=== PATIENT | female | born 1995 | race Caucasian/White ===

== ENCOUNTER 2019-05-15 12:48 | Outpatient (CLI) | payer OTHER | END 2019-05-15 13:11 | disposition home or self-care (01) | LOC: FBPOP 12:48 | PROVIDERS: ATTEND Obstetrics & Gynecology | DX: O24.419 Gestational diabetes mellitus in pregnancy, unspecified control (principal); Z3A.00 Weeks of gestation of pregnancy not specified | CPT/HCPCS: 59025 ==

== ENCOUNTER 2019-06-23 00:46 | Inpatient (IN) | payer OTHER ==
[2019-06-23 01:33] LABS: Appearance,Urine Cloudy (Clear); Bacteria,Urine Occasional /hpf; Bilirubin,Urine Negative (Negative); Blood,Urine Moderate (Negative); Color,Urine Yellow; Glucose,Urine (UA) Negative (Negative); Ketones,Urine Trace (Negative); Leukocyte Esterase,Urine Negative (Negative); Mucus,Urine Occasional /hpf; Nitrite,Urine Negative (Negative); Protein,Urine Negative (Negative); RBC,Urine 1 /hpf (0-5); Specific Gravity,Urine 1.015 (1.001-1.035); Squamous Epithelial Cell,Urine 2 /hpf (0-4); Urobilinogen,Urine <2.0 mg/dL (<2.0); WBC,Urine 2 /hpf (0-5)
[2019-06-23 01:50] LABS: Protein/Creatinine Ratio,Urine 0.106
[2019-06-23 02:07] LABS: Uric Acid 5.7 mg/dL (3.7-7.4)
[2019-06-23 02:18] LABS: Basophils # (A) 0.1 k/uL (0-0.2); Basophils % (A) 0 %; Eosinophils # (A) 0.1 k/uL (0-0.7); Eosinophils % (A) 1 %; HCT 37.9 % (34.0-46.0); HGB 13.1 gm/dL (11.4-16.0); Lymphocytes # (A) 2.2 k/uL (1.0-4.8); Lymphocytes % (A) 20 %; MCH 28.8 pg (25.0-35.0); MCHC 34.5 g/dL (31.0-37.0); MCV 83.6 fL (80.0-100.0); Mean Platelet Volume 8.1; Monocytes # (A) 0.6 k/uL (0-1.0); Monocytes % (A) 5 %; Neutrophils # (A) 8.1 k/uL (1.3-7.7); Neutrophils % (A) 72 %; Platelet Count 310 k/uL (150-450); RBC 4.53 m/uL (3.80-5.40); RDW 12.9 % (11.5-15.5); WBC 11.3 k/uL (3.8-10.6)
[2019-06-23] MEDS ORDERED: CARBOPROST TROMETHAMINE 250 MCG/ML 1 ML AMP IM PRN (02:34)
[2019-06-23] MEDS ORDERED: METHYLERGONOVINE 0.2 MG/ML 1 ML AMP IM PRN (02:34)
[2019-06-23] MEDS ORDERED: LIDOCAINE 0.5% (PF) 5 MG/ML (50 ML SDV) SQ PRN (02:34)
[2019-06-23] MEDS ORDERED: OXYTOCIN 10 UNIT/ML 1 ML VIAL IM PRN (02:34)
[2019-06-23] MEDS ORDERED: TERBUTALINE 1 MG/ML VIAL SQ PRN (02:34)
[2019-06-23] MEDS: LACTATED RINGERS 1,000 ML IV SCH ×2 (02:57→08:55)
[2019-06-23 03:41] LABS: Glucose,Whole Blood 93 mg/dL (75-99)
[2019-06-23] MEDS ORDERED: BUTORPHANOL 1 MG/ML 1 ML VIAL IV PRN (04:54)
[2019-06-23] MEDS ORDERED: OXYTOCIN 30 UNITS/500 ML NS 30 UNIT in SALINE 1 500ML.BAG IV SCH (06:45)
--- NOTE | 2019-06-23 07:55 | P.HPOB ---
History of Present Illness H&P Date: 06/23/19 Chief Complaint: Strong regular uterine contractions This is a 23-year-old white female 1 para 0 EDC for 120 at 38 6/7 weeks gestation. Patient presented last night with strong regular uterine contractions, with cervical change noted in the triage area. Fetus is been active throughout the . She denied vaginal bleeding or fluid leakage. Obstetric history is significant for blood type A positive, group B strep cultures negative. Rubella status immune. Urine culture, gonorrhea and chlamydia cultures, Pap smear, hepatitis B surface antigen, HIV testing all negative. One-hour Glucola 154, 3 hour testing consistent with gestational diabetes. Past medical history is negative. Past surgical history is negative. Family history consistent with heart disease, hypertension, Parkinson's disease, lupus, cervical cancer, endometriosis. Social history, patient is , denies alcohol, tobacco, or drug use. Patient is currently unemployed. ALLERGIES none known. On exam this is a pleasant white female, 5 foot 7 inches, 215 pounds, initial bl ood pressure 142/100, pulse 104, repeat blood pressures normalized. The general physical exam is within normal limits. Extremities reveal trace edema. Chest is clear in all ken. Cervix is 3-4 cm dilated, 80-90% effaced, -2 station, vertex. Artificial amniorrhexis reveals slightly blood-tinged fluid. heart tones are consistent with reactive NST. Impression 38-6/7 weeks intrauterine , early active labor. Gestational diabetes. Plan: Oxytocin augmentation per hospital protocol. Continue close maternal and surveillance. Anticipate normal spontaneous vaginal delivery. Patient is requesting epidural and anesthesia team is present and aware. Review of Systems Constitutional: Reports as per HPI Past Medical History Additional Past Medical History / Comment(s): Gestational diabetes History of Any Multi-Drug Resistant Organisms: None Reported Past Surgical History: No Surgical Hx Reported Past Anesthesia/Blood Transfusion Reactions: No Reported Reaction Past Psychological History: No Psychological Hx Reported Smoking Status: Never smoker Past Alcohol Use History: None Reported Past Drug Use History: None Reported - Past Family History Mother Family Medical History: Cancer Additional Family Medical History / Comment(s): cervical cancer Medications and Allergies Home Medications Medication Instructions Recorded Confirmed Type 78/Iron/Folate 1/Dha 1 each PO DAILY 05/15/19 06/23/19 History [Prenate Dha Softgel] Allergies Allergy/AdvReac Type Severity Reaction Status Date / Time No Known Allergies Allergy Verified 06/23/19 07:35 Exam Vital Signs Temp Pulse Resp BP Pulse Ox 06/23/19 02:58 98.3 F 104 H 18 142/100 97 06/23/19 02:30 93 18 143/95 06/23/19 00:55 98.3 F 108 H 18 142/100 Intake and Output 06/22/19 06/23/19 06/23/19 22:59 06:59 14:59 Intake Total 500 Balance 500 Intake: IV 500 Other: # Voids 1 Weight 97.522 kg See dictation under HPI please Results Result Diagrams: 06/23/19 01:45 Abnormal Lab Results - Last 24 Hours (Table) 06/23/19 06/23/19 Range/Units 01:10 01:45 WBC 11.3 H (3.8-10.6) k/uL Neutrophils # 8.1 H (1.3-7.7) k/uL Urine Appearance Cloudy H (Clear) Urine Ketones Trace H (Negative) Urine Blood Moderate H (Negative) Urine Bacteria Occasional H (None) /hpf Urine Mucus Occasional H (None) /hpf Assessment and Plan Assessment: 38-6/7 weeks intrauterine , early active labor. Gestational diabetes. All signs otherwise reassuring. PIH labs performed, all within normal limits. Plan: Continue close maternal and surveillance. Oxytocin augmentation at this time. Anticipate normal spontaneous vaginal delivery. Time with Patient: Less than 30
[2019-06-23 08:21] LABS: Glucose,Whole Blood 93 mg/dL (75-99)
[2019-06-23] MEDS ORDERED: ROPIVACAINE 100 MG, fentaNYL (PF) 200 MCG in SODIUM CHLORIDE 0.9% 76 ML EPIDURAL ONE (13:15)
[2019-06-23] MEDS ORDERED: BENZOCAINE/MENTHOL SPRAY 1 GM/SPRAY AEROSOL TOPICAL PRN (15:18)
[2019-06-23] MEDS ORDERED: ACETAMINOPHEN TAB 325 MG TAB PO PRN (15:18)
[2019-06-23] MEDS ORDERED: WITCH HAZEL 1 EACH MED..PAD TOPICAL PRN (15:18)
[2019-06-23] MEDS ORDERED: HYDROCORTISONE 2.5% RECTAL CREAM 30 GM TUBE RECTAL PRN (15:18)
[2019-06-23] MEDS ORDERED: diphenhydrAMINE 50 MG CAP PO PRN (15:18)
[2019-06-23] MEDS ORDERED: diphenhydrAMINE 25 MG CAP PO PRN (15:18)
[2019-06-23] MEDS ORDERED: SIMETHICONE 80 MG CHEWABLE PO PRN (15:18)
[2019-06-23] MEDS ORDERED: LANOLIN CREAM 5 GM TUBE TOPICAL PRN (15:18)
[2019-06-23] MEDS ORDERED: diphenhydrAMINE 50 MG/ML 1 ML VIAL IVP PRN ×2 (15:18)
[2019-06-23] MEDS ORDERED: ZOLPIDEM 5 MG TAB PO PRN (15:18)
[2019-06-23] MEDS ORDERED: IBUPROFEN 600 MG TAB PO PRN (15:18)
[2019-06-23] MEDS ORDERED: diphenhydrAMINE ELIXIR 25 MG/10 ML CUP PO PRN (15:18)
--- NOTE | 2019-06-23 15:18 | P.PROBDLV ---
Vaginal Delivery Note - . Vaginal Delivery Note: This is a 23-year-old white female 1 para 0 EDC for 120 at 38-6/7 weeks' gestation. Patient presented with strong regular uterine contractions from home. Cervical change was noted in the triage area after observation for 1 hour, therefore the patient was admitted. history significant for blood type A+, rubella status immune. Group B strep cultures negative. The station of diabetes has been noted with good blood sugar monitoring. Initial blood pressure slightly high at 142/100, AST, ALTs, uric acid, platelets all within normal limits. Please see dictated history and physical for details. Artificial amniorrhexis revealed clear fluid. Oxytocin was started and titrated per hospital protocol. Epidural was requested and placed per her request. Patient progressed through the first stage of labor and did well, heart tones were reassuring. She became completely dilated at 1443 hrs. and began the second stage of labor at that time. With excellent maternal expulsive efforts good station was noted. The perineal body was prepped and draped in usual sterile fashion. 's head delivered occiput anterior and he restituted accordingly. There was no nuchal cord noted. The left or anterior shoulder delivered easily from underneath the pubic symphysis at which time the oropharynx, nasopharynx, and external nares were bulb suctioned. Patient was officially delivered of a liveborn male at 152 hours. Umbilical cord was doubly clamped and ligated, he was handed to waiting nurses for evaluation where scores of 9 and 9 at one and 5 minutes respectively were given. The placenta delivered spontaneously with active monitoring of the third stage of labor. Placenta was intact, with trivascular cord. Uterus is then massaged and oxytocin given. Inspection of cervix, vagina, perineum, periurethral, and perirectal areas revealed a small first-degree perineal laceration. This is repaired easily with a single [id number]-nfila suture of 3-0 Rapide. Total estimated blood loss 250 mL's. Infant's weight 7 lbs. 12 oz. or 3525 g. They are requesting circumcision further son.
[2019-06-23] MEDS ORDERED: OXYTOCIN 20 UNITS/1000 ML NS 1,000 ML IV SCH (15:30)
[2019-06-23] MEDS ORDERED: ONDANSETRON 4 MG/2 ML VIAL IVP STA (15:48)
[2019-06-23] MEDS: FAMOTIDINE 20 MG/2 ML VIAL IV SCH (15:59)
[2019-06-23 17:01] LABS: Hemoglobin A1C 5.2 % (4.0-6.0)
[2019-06-23] MEDS ORDERED: LABETALOL 100 MG TAB PO PRN ×2 (18:21→20:13)
[2019-06-23] MEDS: SENNOSIDES-DOCUSATE SODIUM 1 EACH TAB PO SCH (20:21)
[2019-06-23] MEDS: LABETALOL 100 MG TAB PO SCH (20:37)
--- NOTE | 2019-06-24 08:02 | P.DS ---
Providers Date of admission: 06/23/19 02:41 Expected date of discharge: 06/24/19 Attending physician: Roxy Garcia Primary care physician: Stated None Hospital Course: 23-year-old white female 1 para 0 EDC for 120 at 38-6/7 weeks' gestation. Patient presented yesterday in active spontaneous labor. Blood pressure has been normal throughout the entire . Blood pressure on admission 142/100, however patient was uncomfortable and in active labor. PIH labs were all performed and within normal limits. Please see dictated history and physical for details. Oxytocin augmentation was started. Epidural was placed per her request. She went on to deliver vaginally a liveborn male with scores of 9 and 9 at one and 5 minutes respectively. Infant weighed 3525 g or 7 lbs. 12 oz. There was an estimated blood loss recorded of 250 mL's. Placenta was spontaneously delivered. Please see dictated delivery note for details. A small first-degree perineal laceration was identified and repaired. Blood pressure was elevated several times in the period. Labetalol 100 mg by mouth was given 1. Blood pressures since that time have completely normalized, 130/70 this morning. Patient feels well. She denies headache, visual changes, or right upper quadrant pain. Breast-feeding is going well. Lochia rubra is minimal to moderate. No large clot passage. Circumcision has been performed on the . Patient is wishing discharge home today. We'll continue to monitor blood pressure through the day. If it remains normal, she will be discharged home later today. I've asked her to obtain a sphygmomanometer and take her blood pressures at home daily, and record them. She will call me with any pressures greater than 150s systolic or 90 diastolic. I reminded her no intercourse, tampons or douching. She will use [id number] Advil or Aleve, or ibuprofen as needed for pain. She will call with any headache, visual changes, right upper quadrant pain, blood pressure elevations. She will call with any fevers shakes or chills, foul smelling or copious lochia, with the passage of large blood clots, or with any pain not alleviated by [id number] products. She will follow-up with me in the office by telephone in 2 weeks with blood pressure recordings, or as needed. Plan - Discharge Summary Discharge Rx Participant: No New Discharge Prescriptions: No Action 78/Iron/Folate 1/Dha [Prenate Dha Softgel] 1 each PO DAILY Discharge Medication List 78/Iron/Folate 1/Dha [Prenate Dha Softgel] 1 each PO DAILY 05/15/19 [History] Follow up Appointment(s)/Referral(s): Roxy Garcia MD [STAFF PHYSICIAN] - 2 Weeks Discharge Disposition: HOME SELF-CARE
[2019-06-24] MEDS: SENNOSIDES-DOCUSATE SODIUM 1 EACH TAB PO SCH (09:51)
[2019-06-24] MEDS: LABETALOL 100 MG TAB PO SCH (09:52)
[2019-06-24 11:37] VITALS: RESP 20; TEMP 98.5
[2019-06-24] MEDS: FAMOTIDINE 20 MG/2 ML VIAL IV SCH (11:38)
[2019-06-24 14:05] VITALS: BP 134/77; PULSE 79
--- NOTE | 2019-06-25 09:57 | P.MSEPDOC ---
Presenting Problems - Arrival Data Date of Arrival on Unit: 06/23/19 Time of Arrival on Unit: 02:28 Mode of Transport: Ambulatory - Complaint OB-Reason for Admission/Chief Complaint: Possible Onset of Labor Comment: pt presents to triage for contractions and possible onset of labor Medical History - Information : 1 Para: 0 Term: 0 : 0 Abortions: Spontaneous or Elective: 0 Number of Living Children: 0 - Gestational Age Gestational Age by MADELEINE (wks/days): 38 Weeks and 6 Days - History Complications: GDM Review of Systems - Review of Systems Constitutional: No problems Breast: No problems ENT: No problems Cardiovascular: No problems Respiratory: No problems Gastrointestinal: No problems Genitourinary: No problems Musculoskeletal: No problems Neurological: No problems Skin: No problems Vital Signs - Temperature Temperature: 98.5 F Temperature Source: Oral - Pulse Right Pulse Rate: 79 Pulse Assessment Method: Auscultation - Respirations Respiratory Rate: 20 Oxygen Delivery Method: Room Air - Blood Pressure Right Arm Blood Pressure: 134/77 Blood Pressure Mean: 96 Blood Pressure Source: Automatic Cuff Medical Screen Scoring (Pre) - Cervical Exam Dilation: 1-3 cm = 1 Effacement: More than 50% = 2 Membranes: Intact - Uterine Contractions Frequency: > or = 36 weeks =2 Duration: > 40 seconds = 2 Intensity: N/A - Maternal Vital Signs Maternal Temperature: N/A Maternal Blood Pressure: Diastolic > 89 = 1 Signs of Preeclampsia: N/A Maternal Respirations: N/A - Maternal Trauma Maternal Trauma: N/A - Assessment - Baby A Baseline FHR: 130 Heart Rate - NICHD Category: Category I (Normal) = 0 NST: Reactive Position: N/A Station: N/A - Total Score - Baby A Total Score - Baby A: 8 - Total Score - Baby B Total Score - Baby B: 8 - Total Score - Baby C Total Score - Baby C: 8 - Level of Risk - Baby A Level of Risk - Baby A: Medium (6-9) - Level of Risk - Baby B Level of Risk - Baby B: Medium (6-9) - Level of Risk - Baby C Level of Risk - Baby C: Medium (6-9) Physician Notification (Pre) - Physician Notified Physician/Practitioner Notifed:: Jose - Notification Comment Comment: Called Dr. Garcia with updated BP, per dr. Garcia give labetalol 100mg BID, and if BP >150/90 give an additional labetalol 100mg Medical Screen Scoring (Post) - Uterine Contractions Frequency: > or = 36 weeks =2 Duration: > 40 seconds = 2 Intensity: N/A - Maternal Vital Signs Maternal Temperature: N/A Maternal Blood Pressure: Systolic >139 = 2 Signs of Preeclampsia: N/A Maternal Respirations: N/A - Pain Assessment Pain Location and Character: Pelvic Pain Scale Used: Numeric (1 - 10) Pain Intensity: 9 Pain Description: Pressure, Tightness Pain Frequency: Intermittent Pain Duration: 1 Pain Duration Units: Hours Pain Behavior: Vocalization Pain Aggravating Factors: Contractions - Maternal Trauma Maternal Trauma: N/A - Assessment - Baby A Heart Rate: 125 Heart Rate - NICHD Category: Category I (Normal) = 0 NST: Reactive Position: N/A Station: N/A - Total Score Total Score - Baby A: 6 Total Score - Baby B: 6 Total Score - Baby C: 6 - Post Treatment Level of Risk Post Treatment Level of Risk - Baby A: Medium (6-9) Post Treatment Level of Risk - Baby B: Medium (6-9) Post Treatment Level of Risk - Baby C: Medium (6-9) Physician Notification (Post) - Physician Notified Physician Notified Date: 06/23/19 Physician Notified Time: 02:28 Physician/Practitioner Notified:: Jose Spoke With: Dr. Garcia New Order Received: Yes - Notification Comment Comment: admit pt for labor, lab results given, pt may have epidural or stadol for pain Disposition - Disposition OB Disposition: Admit, LDRP Suite Discharge Date: 06/24/19 Discharge Time: 16:20 I agree with the RN Medical Screening Exam: Yes Risk & Benefit of care provided described in d/c instruction: Yes Diagnosis: LOUSE-BORNE TYPHUS
== END 2019-06-24 16:20 | disposition home or self-care (01) | DRG 807 ==
LOC: FBPOP 00:46 → 4FBP 02:41
PROVIDERS: ADMIT Obstetrics & Gynecology; ATTEND Obstetrics & Gynecology
PROC: 10E0XZZ Delivery of Products of Conception, External Approach (ICD-10-PCS; principal; 2019-06-23)
PROC: 0HQ9XZZ Repair Perineum Skin, External Approach (ICD-10-PCS; principal; 2019-06-23)
DX: O24.429 Gestational diabetes mellitus in childbirth, unspecified control (principal); Z37.0 Single live birth; O70.0 First degree perineal laceration during delivery; Z3A.38 38 weeks gestation of pregnancy; Z80.49 Family history of malignant neoplasm of other genital organs; Z82.0 Family history of epilepsy and other diseases of the nervous system; Z82.49 Family history of ischemic heart disease and other diseases of the circulatory system
CPT/HCPCS: 59025; 81001; 82570; 83036; 84156; 84450; 84460; 84550; 85025; 86850; 86900; 86901; 99214

== ENCOUNTER → 2023-08-01 | Outpatient (CLI) | payer BC ==
[2023-08-01 16:00] VITALS: BP 138/81; PULSE 99; RESP 16; TEMP 98.1
[2023-08-01 16:33] LABS: Basophils % (A) 0 %; Eosinophils % (A) 1 %; HCT 34.2 % (34.0-46.0); Lymphocytes # (A) 1.2 k/uL (1.0-4.8); Lymphocytes % (A) 14 %; MCH 26.8 pg (25.0-35.0); MCHC 32.2 g/dL (31.0-37.0); MCV 83.1 fL (80.0-100.0); Monocytes # (A) 0.3 k/uL (0-1.0); Monocytes % (A) 4 %; Neutrophils # (A) 6.3 k/uL (1.3-7.7); Neutrophils % (A) 79 %; Platelet Count 273 k/uL (150-450); RBC 4.12 m/uL (3.80-5.40); RDW 13.3 % (11.5-15.5)
[2023-08-01 16:40] LABS: Appearance,Urine Cloudy (Clear); Bacteria,Urine Rare /hpf; Bilirubin,Urine Negative (Negative); Blood,Urine Negative (Negative); Color,Urine Light Yellow; Glucose,Urine (UA) Negative (Negative); Ketones,Urine 3+ (Negative); Leukocyte Esterase,Urine Small (Negative); Mucus,Urine Occasional /hpf; Nitrite,Urine Negative (Negative); Protein,Urine Trace (Negative); RBC,Urine 2 /hpf (0-5); Specific Gravity,Urine 1.019 (1.001-1.035); Squamous Epithelial Cell,Urine 2 /hpf (0-4); Urobilinogen,Urine <2.0 mg/dL (<2.0); WBC,Urine 4 /hpf (0-5)
[2023-08-01 16:51] LABS: ALT 13 U/L (4-34); AST 20 U/L (14-36); African American GFR (CKD) >90 (>60 ml/min/1.73 sqM); Blood Urea Nitrogen 9 mg/dL (7-17); Non-African American GFR(CKD) >90 (>60 ml/min/1.73 sqM); Uric Acid 5.3 mg/dL (3.7-7.4)
[2023-08-01 16:52] LABS: Creatinine,Urine Random 134.9 mg/dL; Protein/Creatinine Ratio,Urine 0.059
--- NOTE | 2023-08-03 18:22 | P.MSEPDOC ---
Presenting Problems - Arrival Data Date of Arrival on Unit: 08/01/23 Time of Arrival on Unit: 15:01 Mode of Transport: Ambulatory - Complaint OB-Reason for Admission/Chief Complaint: PIH Comment: sent from office with script for pih workup Medical History - Information : 2 Para: 1 Term: 1 : 0 Abortions: Spontaneous or Elective: 0 Number of Living Children: 1 - Gestational Age Gestational Age by MADELEINE (wks/days): 37 Weeks and 6 Days - History Complications: GDM Comment: high pressure in office Review of Systems - Review of Systems Constitutional: No problems Breast: No problems ENT: No problems Cardiovascular: No problems Respiratory: No problems Gastrointestinal: No problems Genitourinary: No problems Musculoskeletal: No problems Neurological: No problems Skin: No problems Vital Signs - Temperature Temperature: 98.1 F Temperature Source: Temporal Artery Scan - Pulse Right Brachial Pulse Rate: 99 Pulse Assessment Method: Automatic Cuff - Respirations Respiratory Rate: 16 Oxygen Delivery Method: Room Air - Blood Pressure Right Arm Sitting Blood Pressure: 138/81 Blood Pressure Mean: 100 Blood Pressure Source: Automatic Cuff Medical Screen Scoring - Assessment - Baby A Baseline FHR: 125 Heart Rate - NICHD Category: Category I (Normal) Physician Notification - Physician Notified Physician Notified Date: 08/01/23 Physician Notified Time: 15:58 Physician: Vi Lloyd Maternal Triage Index - Maternal Triage Index Presenting for scheduled procedure w/no complaint: No - Stat/Priority 1 Stat Priority 1: No - Urgent/Priority 2 Urgent Priority 2: No - Prompt/Priority 3 Prompt Priority 3: Yes Criteria Met for Priority 3: 37.6 pih work up from office with written script Disposition - Disposition OB Disposition: Triage Discharge Date: 08/01/23 I agree with the RN Medical Screening Exam: Yes Physician's MSE Comment: I have neither seen nor examined the patient Case reviewed; plan agreed upon as documented in EMR&OBIX.: Yes Diagnosis: MATERNAL CARE FOR PROBLEM, UNSP, THIRD * DO NOT USE *
== END ==
LOC: FBPOP 15:01
PROVIDERS: ATTEND Obstetrics & Gynecology
DX: O13.3 Gestational [pregnancy-induced] hypertension without significant proteinuria, third trimester (principal); O24.429 Gestational diabetes mellitus in childbirth, unspecified control; Z3A.37 37 weeks gestation of pregnancy
CPT/HCPCS: 59025; 81001; 82565; 82570; 84156; 84450; 84460; 84520; 84550; 85025

== ENCOUNTER 2023-08-07 01:04 | Inpatient (IN) | payer BC ==
[2023-08-07 02:45] LABS: ALT 13 U/L (4-34); AST 19 U/L (14-36); African American GFR (CKD) >90 (>60 ml/min/1.73 sqM); Blood Urea Nitrogen 9 mg/dL (7-17); LDH 163 U/L (120-246); Non-African American GFR(CKD) >90 (>60 ml/min/1.73 sqM); Uric Acid 5.1 mg/dL (3.7-7.4)
[2023-08-07 02:53] LABS: Appearance,Urine Cloudy (Clear); Bacteria,Urine Rare /hpf; Bilirubin,Urine Negative (Negative); Blood,Urine Moderate (Negative); Color,Urine Light Yellow; Glucose,Urine (UA) Negative (Negative); Ketones,Urine 1+ (Negative); Leukocyte Esterase,Urine Small (Negative); Mucus,Urine Rare /hpf; Nitrite,Urine Negative (Negative); PH, Urine 5.5 (5.0-8.0); Protein,Urine Negative (Negative); RBC,Urine 66 /hpf (0-5); Specific Gravity,Urine 1.013 (1.001-1.035); Squamous Epithelial Cell,Urine 3 /hpf (0-4); Urobilinogen,Urine <2.0 mg/dL (<2.0); WBC,Urine 2 /hpf (0-5)
[2023-08-07 02:55] LABS: Creatinine,Urine Random 83.6 mg/dL; Protein/Creatinine Ratio,Urine 0.144
[2023-08-07 03:02] LABS: Basophils # (A) 0.1 k/uL (0-0.2); Basophils % (A) 1 %; Eosinophils # (A) 0.2 k/uL (0-0.7); Eosinophils % (A) 2 %; HCT 34.3 % (34.0-46.0); HGB 11.2 gm/dL (11.4-16.0); Lymphocytes # (A) 2.1 k/uL (1.0-4.8); Lymphocytes % (A) 24 %; MCH 26.9 pg (25.0-35.0); MCHC 32.7 g/dL (31.0-37.0); MCV 82.3 fL (80.0-100.0); Mean Platelet Volume 8.8; Monocytes # (A) 0.5 k/uL (0-1.0); Monocytes % (A) 6 %; Neutrophils # (A) 5.6 k/uL (1.3-7.7); Neutrophils % (A) 65 %; Platelet Count 303 k/uL (150-450); RBC 4.17 m/uL (3.80-5.40); RDW 13.5 % (11.5-15.5); WBC 8.6 k/uL (3.8-10.6)
[2023-08-07] MEDS ORDERED: TERBUTALINE 1 MG/ML VIAL SQ PRN (03:23)
[2023-08-07] MEDS ORDERED: OXYTOCIN 10 UNIT/ML 1 ML VIAL IM PRN (03:23)
[2023-08-07] MEDS ORDERED: METHYLERGONOVINE 0.2 MG/ML 1 ML AMP IM PRN (03:23)
[2023-08-07] MEDS ORDERED: LIDOCAINE 0.5% (PF) 5 MG/ML (50 ML SDV) SQ PRN (03:23)
[2023-08-07] MEDS ORDERED: TRANEXAMIC 1,000 MG/100ML-NACL 1,000 MG in EMPTY BAG 1 BAG IV PRN (03:23)
[2023-08-07] MEDS ORDERED: CARBOPROST TROMETHAMINE 250 MCG/ML 1 ML AMP IM PRN (03:23)
[2023-08-07] MEDS ORDERED: miSOPROStoL 200 MCG TAB PO PRN (03:23)
[2023-08-07] MEDS ORDERED: NALBUPHINE 10 MG/ML (10 ML MDV) IV PRN (03:29)
[2023-08-07] MEDS: LACTATED RINGERS 1,000 ML IV SCH (04:10)
[2023-08-07 07:14] LABS: Glucose,Whole Blood 98 mg/dL (70-110)
--- NOTE | 2023-08-07 08:22 | P.HPOB ---
History of Present Illness H&P Date: 08/07/23 Chief Complaint: Contractions Ms. Dumont is a 27 year old at 38 weeks and 5 days with EDC of 08/16/2023 by LMP consistent with 8 week US who presents in early labor. Her cervix changed from 1.5 centimeters to 4 centimeters over the past 5 hours. Her has been complicated by gestational diabetes, moderately well-controlled with diet. Throughout the the patient has also had elevated blood pressure readings in the office. Her home blood pressures were all normotensive and her home cuff was brought into the office to be calibrated against our office cuff with similar readings. The patient was assumed to have white coat hypertension. The fetus is measuring in the 67%ile based no a 32 week ultrasound. The patient has had non-stress tests for the past 6 weeks that were reassuring. Obstetric history: 1 FTVD of male at 38 weeks weighing 7#12oz, no complications work-up: Blood type A positive, antibody screen negative, rubella im mune, VDRL non-reactive, HBsAg negative, HIV negative, HCV Ab negative, gonorrhea negative, chlamydia negative, 1 hour GTT and 3 hour GTT abnormal as above, GBS negative. s/p TDap on 06/18/23. Past Medical History Additional Past Medical History / Comment(s): Gestational diabetes History of Any Multi-Drug Resistant Organisms: None Reported Past Surgical History: No Surgical Hx Reported Past Anesthesia/Blood Transfusion Reactions: No Reported Reaction Past Psychological History: No Psychological Hx Reported Smoking Status: Never smoker Past Alcohol Use History: None Reported Past Drug Use History: None Reported - Past Family History Mother Family Medical History: Cancer Additional Family Medical History / Comment(s): cervical cancer Medications and Allergies Home Medications Medication Instructions Recorded Confirmed Type 78/Iron/Folate 1/Dha 1 each PO DAILY 05/15/19 08/01/23 History [Prenate Dha Softgel] Allergies Allergy/AdvReac Type Severity Reaction Status Date / Time No Known Allergies Allergy Verified 08/07/23 01:28 Exam Vital Signs Temp Pulse Resp BP 08/07/23 03:51 98.2 F 101 H 16 158/104 Intake and Output 08/06/23 08/07/23 08/07/23 22:59 06:59 14:59 Other: # Voids 1 Weight 102.965 kg Focused physical exam is performed. This is a healthy-appearing in no apparent distress. Breathing is non-labored. Abdomen is gravid and non-tender. Cervical exam is 4 cm, 70 effacement, -2 station. AROM is undertaken with clear fluid noted. Extremities non-tender and non-edematous. heart tones are Category I and tocometer is graphing contractions every 2-4 minutes. Results Result Diagrams: 08/07/23 02:24 08/07/23 02:24 Abnormal Lab Results - Last 24 Hours (Table) 08/07/23 08/07/23 Range/Units 02:24 02:24 Hgb 11.2 L (11.4-16.0) gm/dL Urine Appearance Cloudy H (Clear) Urine Ketones 1+ H (Negative) Urine Blood Moderate H (Negative) Ur Leukocyte Esterase Small H (Negative) Urine RBC 66 H (0-5) /hpf Urine Bacteria Rare H (None) /hpf Urine Mucus Rare H (None) /hpf Assessment and Plan Assessment: 27 year old at 38 weeks and 5 days in labor, complicated by diet-controlled GDM Plan: Admit, clear liquid diet, expectant management, continuous EFM and tocometer. Anticipate vaginal delivery. Time with Patient: Less than 30
[2023-08-07] MEDS: OXYTOCIN 30 UNITS/500 ML NS 30 UNIT in SALINE 1 500ML.BAG IV SCH (13:51)
[2023-08-07] MEDS ORDERED: diphenhydrAMINE 50 MG/ML 1 ML VIAL IVP PRN ×2 (14:10)
[2023-08-07] MEDS ORDERED: ACETAMINOPHEN TAB 325 MG TAB PO PRN (14:10)
[2023-08-07] MEDS ORDERED: diphenhydrAMINE 50 MG CAP PO PRN (14:10)
[2023-08-07] MEDS ORDERED: HYDROCORTISONE 2.5% RECTAL CREAM 30 GM TUBE RECTAL PRN (14:10)
[2023-08-07] MEDS ORDERED: ZOLPIDEM 5 MG TAB PO PRN (14:10)
[2023-08-07] MEDS ORDERED: LANOLIN CREAM 1 GM TUBE TOPICAL PRN (14:10)
[2023-08-07] MEDS ORDERED: BENZOCAINE/MENTHOL SPRAY 1 GM/SPRAY AEROSOL TOPICAL PRN (14:10)
[2023-08-07] MEDS ORDERED: diphenhydrAMINE 25 MG CAP PO PRN (14:10)
[2023-08-07] MEDS ORDERED: SIMETHICONE 80 MG CHEWABLE PO PRN (14:10)
--- NOTE | 2023-08-07 14:10 | P.PROBDLV ---
Vaginal Delivery Note - . Vaginal Delivery Note: DATE OF SERVICE: 08/07/2023 PROCEDURE: Normal Vaginal Delivery ATTENDING: Dr. Vi Lloyd MD ESTIMATED BLOOD LOSS: 300 mL FINDINGS: VMI, Apgars 7/9. Weight 8 pounds and 12 ounces (3955 grams) PROCEDURE: Ms. Dumont is a 27 year old at 38 weeks and 5 days presenting to labor and delivery in latent labor. The has been complicated by diet-controlled GDM. For further details, please review the admitting H&P. AROM was undertaken at 807 revealing clear amniotic fluid. The patient declined epidural anesthesia. The patient was completely dilated at 1332. She pushed effectively and the head was delivered. A mild should dystocia was encou ntered which was relieved with McRobert's position, suprpubic pressure, and shrugging of the posteiror shoulder. A viable male infant was born less than a minute later at 1348. The infant was placed on the maternal abdomen and bulb suctioned. The was noted to be spontaneously crying. Cord was clamped and cut after a 30-second delay. The was handed off to the pediatric team. Placenta was delivered whole with gentle cord traction at 1350. Oxytocin was started to facilitate uterine tone. Uterine fundus was found to be firm and below the umbilicus upon fundal massage. Thorough examination of the cervix, vagina, periurethral area, and perineum revealed no lacerations. The patient is stable and allowed to begin the bonding process.
[2023-08-07] MEDS: IBUPROFEN 600 MG TAB PO PRN (14:20)
[2023-08-07] MEDS: ONDANSETRON 4 MG/2 ML VIAL IVP PRN (14:59)
[2023-08-07 16:01] VITALS: RESP 16
[2023-08-07] MEDS: SENNOSIDES-DOCUSATE SODIUM 1 EACH TAB PO SCH (20:00)
[2023-08-08 08:09] LABS: Basophils # (A) 0.1 k/uL (0-0.2); Basophils % (A) 1 %; Eosinophils # (A) 0.1 k/uL (0-0.7); Eosinophils % (A) 1 %; HCT 33.3 % (34.0-46.0); HGB 10.6 gm/dL (11.4-16.0); Hypochromasia Slight; Lymphocytes # (A) 1.5 k/uL (1.0-4.8); Lymphocytes % (A) 16 %; MCHC 31.8 g/dL (31.0-37.0); MCV 85.2 fL (80.0-100.0); Monocytes # (A) 0.4 k/uL (0-1.0); Monocytes % (A) 4 %; Neutrophils # (A) 7.3 k/uL (1.3-7.7); Neutrophils % (A) 76 %; Platelet Count 260 k/uL (150-450); RBC 3.91 m/uL (3.80-5.40); RDW 13.7 % (11.5-15.5); WBC 9.6 k/uL (3.8-10.6)
--- NOTE | 2023-08-08 08:29 | P.DS ---
Providers Date of admission: 08/07/23 03:13 Expected date of discharge: 08/08/23 Attending physician: Vi Lloyd MD Primary care physician: Stated None Hospital Course: 27 year old now PPD#1 s/p vaginal delivery complicated by mild shoulder dystocia. The was complicated by diet-controlled gestational diabetes. The patient is doing well this morning and had no acute events overnight. She has no complaints this morning. She reports minimal lochia, passing flatus, voiding without difficulty, ambulating, and eating/drinking without nausea or vomiting. doing well at bedside, s/p circumcision. She denies chest pain, shortness of breathing, fevers, or chills overnight. She denies pain or swelling in the legs. She denies headache, visual disturbances, and right upper quadrant pain. She has had some mild range blood pressures and one isolated severe range blood presure. She does have a component of white coat HTN. She is encouraged to continue checking home blood pressures daily and to return to the ER for BP >160/110 or other signs or symptoms of preeclampsia. restrictions are reviewed with the patient including pelvic rest for 6 weeks. The patient is encouraged to call the office if she experiences any heavy bleeding, foul-smelling discharge, breast complaints, or any if she has any other concerns. She will follow up in the office with in 6 weeks for postoperative exam. She will also need a 2 hour GTT at her 6 week appointment. She plans to use Motrin and Tylenol OTC as needed for pain. All questions are answered. Assessment: 27 year old PPD#1 s/p vaginal delivery complicated by mild shoulder dystocia Patient Condition at Discharge: Good Plan - Discharge Summary New Discharge Prescriptions: No Action 78/Iron/Folate 1/Dha [Prenate Dha Softgel] 1 each PO DAILY Discharge Medication List 78/Iron/Folate 1/Dha [Prenate Dha Softgel] 1 each PO DAILY 05/15/19 [History] Follow up Appointment(s)/Referral(s): Vi Lloyd MD [STAFF PHYSICIAN] - 09/18/23 10:15 am Activity/Diet/Wound Care/Special Instructions: Instructions 1. Do not begin any exercise program for 3 weeks. 2. Do not resume sexual relations for 6 weeks or longer if uncomfortable. 3. You may take tub baths or showers at any time. 4. You may use tampons if desired after 6 weeks. 5. Keep any areas repaired with stitches clean and dry. 6. If you are not nursing, wear a good fitting, supportive bra during the day and limit fluid intake for at least 1 week to prevent breast engorgement. 7. Call the office, , within the next week to make appointment for your 6 week checkup if it has not already been made. 8. Report any of the following occurrences to the doctor promptly: a. Heavy, excessive bleeding b. Chills, fever c. Burning or frequency of urination d. Pain or redness and breasts if nursing e. Increasing pain or swelling of vulva (stitches). In addition to the above instructions, the following additional should be followed: 1. No heavy lifting or straining (exercising) until after 6 week checkup. 2. Keep abdominal incision clean and dry: You may wear a dressing if more comfortable. 3. Make office appointment for 2 weeks after delivery date. Discharge Disposition: HOME SELF-CARE
[2023-08-08 09:54] VITALS: BP 116/74; PULSE 98; TEMP 98.5
== END 2023-08-08 16:03 | disposition home or self-care (01) | DRG 807 ==
LOC: FBPOP 01:04 → 4FBP 03:13
PROVIDERS: ADMIT Obstetrics & Gynecology; ATTEND Obstetrics & Gynecology
PROC: 10E0XZZ Delivery of Products of Conception, External Approach (ICD-10-PCS; principal; 2023-08-07)
PROC: 10907ZC Drainage of Amniotic Fluid, Therapeutic from Products of Conception, Via Natural or Artificial Opening (ICD-10-PCS; 2023-08-07)
PROC: 3E033VJ Introduction of Other Hormone into Peripheral Vein, Percutaneous Approach (ICD-10-PCS; 2023-08-07)
DX: O24.420 Gestational diabetes mellitus in childbirth, diet controlled (principal); Z37.0 Single live birth; O16.4 Unspecified maternal hypertension, complicating childbirth; O62.3 Precipitate labor; O26.893 Other specified pregnancy related conditions, third trimester; O66.0 Obstructed labor due to shoulder dystocia; Z3A.38 38 weeks gestation of pregnancy; Z80.49 Family history of malignant neoplasm of other genital organs
CPT/HCPCS: 81001; 82565; 82570; 83615; 84156; 84450; 84460; 84520; 84550; 85025; 86850; 86900; 86901; 99213